=== PATIENT | female | born 1950 | race Caucasian/White ===

== ENCOUNTER 2019-03-28 09:27 | Emergency (ER) | payer MEDICARE, OTHER ==
[~2019-03-28] VITALS: Wt 63.7 kg
[2019-03-28] MEDS ORDERED: SOD CHLORIDE 0.9% 250 ML IV ONE (11:30)
--- NOTE | 2019-03-28 11:30 | ERD ---
ER Documentation Chief Complaint Chief Complaint pt. states "low sodium", c/o weakness, nausea HPI 68-year-old female referred to the emergency department by her primary care doctor for evaluation of hyponatremia. Patient had routine blood tests done 2 days ago that demonstrated a low sodium of 116. The rest of her tests were essentially stable and at baseline for her. She reports feeling some slight generalized weakness but no focal weakness or numbness. She feels slightly nauseous but with no abdominal pain and she does not report any vomiting. She reports no diarrhea. She reports no seizures. ROS All systems reviewed and are negative except as per history of present illness. Allergies Allergies: Coded Allergies: Penicillins (Verified Allergy, Intermediate, 03/28/19) PMhx/Soc History of Surgery: Yes (bone marrow transplant) Anesthesia Reaction: No Hx Neurological Disorder: No Hx Respiratory Disorders: No Hx Cardiac Disorders: Yes (HTN) Hx Psychiatric Problems: No Hx Miscellaneous Medical Probl: Yes (Hyponatremia) Hx Alcohol Use: No Hx Substance Use: No Hx Tobacco Use: No Smoking Status: Never smoker FmHx Noncontributory with supportive family at bedside Physical Exam Vitals Vital Signs Date Temp Pulse Resp B/P (MAP) Pulse Ox O2 O2 Flow FiO2 Time Delivery Rate 03/28/19 98.0 68 20 165/71 98 Room Air 10:16 (102) 03/28/19 97.4 54 20 171/77 98 09:47 (108) Physical Exam GENERAL: The patient is well developed and appropriate for usual state of health in no apparent distress HEENT: Pupils equal, round, and reactive to light. EOMI. There is no scleral icterus. NECK: C-spine is soft and supple, there is no meningismus. There is no cervical lymphadenopathy. LUNGS: Clear to auscultation bilaterally. There are no rales, wheezes or rhonchi. HEART: Regular rate and rhythm, no murmurs, clicks, rubs or gallops. ABDOMEN: Soft, non-tender, non-distended. There are bowel sounds in all four quadrants. No rebound or guarding. EXTREMITIES: There is no peripheral cyanosis or edema. No focal swelling or er ythema. NEURO: The patient moves all four extremities with 5/5 strength. Cranial nerves II - XII are intact. Normal gait. Alert and oriented SKIN: There is no apparent rash or petechiae. HEME/LYMPHATIC: There is no evidence of excessive bruising or lymphedema. PSYCHIATRIC: The patient does not appear anxious or depressed. Result Diagram: 03/28/19 1031 03/28/19 1031 Results 24 hrs Laboratory Tests Test 03/28/19 10:31 White Blood Count 7.8 10^3/ul Red Blood Count 2.92 10^6/ul Hemoglobin 10.8 g/dl Hematocrit 29.0 % Mean Corpuscular Volume 99.3 fl Mean Corpuscular Hemoglobin 37.0 pg Mean Corpuscular Hemoglobin Concent 37.2 g/dl Red Cell Distribution Width 12.0 % Platelet Count 225 10^3/UL Mean Platelet Volume 9.5 fl Immature Granulocytes % 0.600 % Neutrophils % 69.2 % Lymphocytes % 19.4 % Monocytes % 10.7 % Eosinophils % 0.0 % Basophils % 0.1 % Nucleated Red Blood Cells % 0.0 /100WBC Immature Granulocytes # 0.050 10^3/ul Neutrophils # 5.4 10^3/ul Lymphocytes # 1.5 10^3/ul Monocytes # 0.8 10^3/ul Eosinophils # 0.0 10^3/ul Basophils # 0.0 10^3/ul Nucleated Red Blood Cells # 0.0 10^3/ul Sodium Level 118 mmol/L Potassium Level 3.7 mmol/L Chloride Level 80 mmol/L Carbon Dioxide Level 29 mmol/L Anion Gap 9 Blood Urea Nitrogen 13 mg/dl Creatinine 0.69 mg/dl Est Glomerular Filtrat Rate mL/min > 60 mL/min Glucose Level 108 mg/dl Calcium Level 8.9 mg/dl Current Medications Medications Dose Sig/Seth Start Time Status Last (Trade) Ordered Route PRN Stop Time Admin Dose Reason Admin Sodium 250 ml @ Q1H ONCE 03/28/19 03/28/19 Chloride 250 mls/hr IV 11:30 03/28/19 11:18 12:29 Procedures/MDM Patient was taken to a room, seen and evaluated. Comfort measures were initiated. Diagnostic tests were ordered and reviewed. 3 LEAD RHYTHM STRIP: Normal sinus rhythm without ectopy CONSULTATION: I coordinated care with the patient's primary care doctor and oncologist REEVALUATION: 1125: Diagnostic tests including her sodium were discussed with the patient and her family. She remained neurologically normal and relatively asymptomatic. Discussion was about inpatient observation for correction of her sodium and fluid restriction versus outpatient monitoring. The patient and her family felt comfortable with outpatient follow-up. MEDICAL DECISION MAKIN-year-old female presents with what appears to be a chronic, long-standing hyponatremia. She resents with no acute neurologic dysfunction including no evidence of seizures or significant weakness. Her hyponatremia is likely related to her medication including her hydrochlorothiazide which she just stopped a few days ago as well as her underlying comorbid conditions and a possibility of either SIADH or paraneopla stic concerns. Overall, I am comfortable that this is a chronic and not acute hyponatremia and the patient does seem appropriate for discharge. Departure Diagnosis: Primary Impression: Hyponatremia Patient Instructions: Hyponatremia Additional Instructions: Limit your water intake to 3 glasses a day maximum Return tomorrow to have your sodium rechecked NAA MATHEW Mar 28, 2019 11:30
[2019-03-28 11:33] VITALS: BP 158/63; PULSE 55; RESP 16
== END 2019-03-28 11:41 | disposition home or self-care (01) ==
LOC: E/R 09:27
DX: E87.1 Hypo-osmolality and hyponatremia (principal); I10 Essential (primary) hypertension
CPT/HCPCS: 36415; 80048; 85025; 99284; J7040

== ENCOUNTER 2019-03-29 09:12 | Emergency (ER) | payer MEDICARE, OTHER ==
[~2019-03-29] VITALS: Ht 157.5 cm; Wt 70.0 kg
[2019-03-29 09:15] VITALS: Ht 157.5 cm; Wt 70.0 kg
--- NOTE | 2019-03-29 09:28 | ERD ---
ER Documentation Chief Complaint Chief Complaint SEND BY PMD DUE LOW SODIUM, FEELS TIRED X 1 WEEK HPI 68-year-old female with a history of prolonged hyponatremia who was recently started on hydrochlorothiazide. She was seen yesterday for hyponatremia of the 118 range. Patient was evaluated and thought to be chronic. She had disc ontinued her hydrochlorothiazide. She was discharged with follow-up today for repeat testing. No altered mental status or seizure noted per family. She is at her baseline. No other complaints. ROS All systems reviewed and are negative except as per history of present illness. Allergies Allergies: Coded Allergies: Penicillins (Verified Allergy, Intermediate, 03/28/19) PMhx/Soc History of Surgery: Yes (bone marrow transplant) Anesthesia Reaction: No Hx Neurological Disorder: No Hx Respiratory Disorders: No Hx Cardiac Disorders: Yes (HTN) Hx Psychiatric Problems: No Hx Miscellaneous Medical Probl: Yes (Hyponatremia) Hx Alcohol Use: No Hx Substance Use: No Hx Tobacco Use: No FmHx Family History: No diabetes Physical Exam Vitals Vital Signs Date Temp Pulse Resp B/P (MAP) Pulse Ox O2 O2 Flow FiO2 Time Delivery Rate 03/29/19 98.1 51 18 180/74 99 09:15 (109) Physical Exam General: Well developed, well nourished, no acute distress Head: Normocephalic, atraumatic. Eyes: Pupils equally reactive, EOM intact ENT: Moist mucous membranes Neck: Supple, no lymphadenopathy Respiratory: Lungs clear bilaterally, no distress Cardiovascular: RRR, no murmurs, rubs, or gallops Abdominal: Soft, non-tender, non-distended, no peritoneal signs : Deferred MSK: No edema, no unilateral swelling, 5/5 strength Neurologic: Alert and oriented, moving all extremities, normal speech, no focal weakness, no cerebellar signs Skin: No rash Psych: Normal mood Result Diagram: 03/29/1932 03/29/1932 Results 24 hrs Laboratory Tests Test 03/29/19 09:32 White Blood Count 6.8 10^3/ul Red Blood Count 3.03 10^6/ul Hemoglobin 11.3 g/dl Hematocrit 30.6 % Mean Corpuscular Volume 101.0 fl Mean Corpuscular Hemoglobin 37.3 pg Mean Corpuscular Hemoglobin Concent 36.9 g/dl Red Cell Distribution Width 12.4 % Platelet Count 229 10^3/UL Mean Platelet Volume 9.6 fl Immature Granulocytes % 0.900 % Neutrophils % 62.8 % Lymphocytes % 26.7 % Monocytes % 9.3 % Eosinophils % 0.0 % Basophils % 0.3 % Nucleated Red Blood Cells % 0.0 /100WBC Immature Granulocytes # 0.060 10^3/ul Neutrophils # 4.3 10^3/ul Lymphocytes # 1.8 10^3/ul Monocytes # 0.6 10^3/ul Eosinophils # 0.0 10^3/ul Basophils # 0.0 10^3/ul Nucleated Red Blood Cells # 0.0 10^3/ul Sodium Level 125 mmol/L Potassium Level 3.9 mmol/L Chloride Level 86 mmol/L Carbon Dioxide Level 30 mmol/L Anion Gap 9 Blood Urea Nitrogen 15 mg/dl Creatinine 0.75 mg/dl Est Glomerular Filtrat Rate mL/min > 60 mL/min Glucose Level 105 mg/dl Calcium Level 8.8 mg/dl Procedures/MDM EKG, MONITORS, & DIAGNOSTIC IMAGING: EKG: I reviewed and interpreted a 12-lead EKG. Rhythm: Normal sinus rhythm ST Changes: No contiguous ST segment elevations T waves: No contiguous T wave inversions Impression: No evidence of acute cardiac ischemia LAB INTERPRETATION: I reviewed the laboratory testing and it shows improved sodium MEDICAL DECISION MAKING: Patient presents to the emergency room with evaluation for acute on chronic hyponatremia. The patient was 118 yesterday. This was thought to be secondary to chronic hyponatremia on top of hydrochlorothiazide. The medication is since been discontinued. Patient has no new changes. No neurologic changes. Repeat testing appropriate. This seems more to be related to volume rather than euvolemic hyponatremia such as SIADH. ER COURSE: * The patient's sodium is improving. The patient can be safely discharged home. CONSULTATION: None DISPOSITION PLAN: The patient does not have an identifiable emergent medical condition that warrants inpatient hospitalization at this time. The patient is deemed safe for discharge with outpatient follow-up. We discussed follow up with the patient's primary care doctor within 24 to 48 hours as needed. We also discussed return to the emergency room for worsening symptoms or worsening condition. Outpatient referral: None required Discharge Medications: None required Departure Diagnosis: Primary Impression: Hyponatremia Additional Impression: Encounter for laboratory test Condition: LO Jc MD Mar 29, 2019 09:28
[2019-03-29 11:15] VITALS: BP 122/79; PULSE 75; RESP 17
== END 2019-03-29 11:20 | disposition home or self-care (01) ==
LOC: E/R 09:12
DX: E87.1 Hypo-osmolality and hyponatremia (principal); I10 Essential (primary) hypertension
CPT/HCPCS: 36415; 80048; 85025; 93005